=== PATIENT | male | born 1965 | race Caucasian/White ===

== ENCOUNTER 2017-06-09 17:30 | Inpatient (IN) | payer MEDICAID, OTHER ==
[2017-06-09 18:40] LABS: BASO % 0.5 % (0.0-2.0); EOS # 0.1 K/uL (0.0-0.7); EOS % 2.6 % (0.0-4.0); HEMATOCRIT 27.5 % (35.0-51.0); LYMPH # 2.8 K/uL (1.0-4.3); LYMPH % 53.7 % (20.0-40.0); MEAN CELL VOLUME 80.7 fL (80.0-94.0); MEAN CORPUSCULAR HEMOGLOBIN 26.1 pg (27.0-31.0); MEAN CORPUSCULAR HGB CONC 32.3 g/dL (33.0-37.0); MEAN PLATELET VOLUME 7.7 fL (7.2-11.7); MONO # 0.7 K/uL (0.0-0.8); MONO % 13.6 % (0.0-10.0); NRBC % 0.1 % (0.0-2.0); RED CELL DISTRIBUTION WIDTH 20.5 % (11.5-14.5); WHITE BLOOD COUNT 5.3 K/uL (4.8-10.8)
[2017-06-09 18:49] LABS: CHLORIDE 103 mmol/L (98-107)
[2017-06-09 18:50] LABS: POTASSIUM 3.9 mmol/L (3.6-5.2); SODIUM 140 mmol/L (132-148)
[2017-06-09 18:52] LABS: GFR AFRICAN-AMERICAN > 60
[2017-06-09 18:53] LABS: ALB/GLOB RATIO 0.8 (1.0-2.1); ALKALINE PHOSPHATASE 111 U/L (38-126); ALT/SGPT 92 U/L (21-72); AST/SGOT 152 U/L (17-59); BILIRUBIN,TOTAL 0.4 mg/dL (0.2-1.3); BLOOD UREA NITROGEN 13 mg/dL (9-20); CALCIUM 8.3 mg/dl (8.6-10.4); CARBON DIOXIDE 22 mmol/L (22-30); GLUCOSE,RANDOM 95 mg/dL (75-110); TOTAL PROTEIN 8.2 g/dL (6.3-8.3)
--- NOTE | 2017-06-09 18:57 | C.PDOC ---
History Of Present Illness 52 y/o male, with PMHx of seizures, and asthma, presents to ED for evaluation of seizure episode prior to arrival. As per brother, he noticed pt to be short of breath and was given breathing treatment. Pt then began to have seizure, at which point EMS was called. Pt states he is complaint with Keppra. Pt admits to drinking alcohol today. At evaluation, pt is having episode of seizure. Seizure activity was controlled. No other complaints at this time. Time Seen by Provider: 06/09/17 18:08 Chief Complaint (Nursing): Seizure History Per: Patient, Family History/Exam Limitations: no limitations Recent Seizure Activity Began: Just Before Arrival Severity: None Pain Scale Rating Of: 0 Recent travel outside of the [place]: No Additional History Per: Patient Past Medical History Reviewed: Historical Data, Nursing Documentation, Vital Signs Vital Signs: Last Vital Signs Temp 97.3 F L 06/09/17 17:35 Pulse 101 H 06/09/17 21:00 Resp 22 06/09/17 21:00 BP 107/62 06/09/17 21:00 Pulse Ox 95 06/09/17 21:32 - Medical History PMH: Depression, HTN, Seizures Family History: States: Unknown Family Hx - Social History Hx Tobacco Use: Yes Hx Alcohol Use: Yes Hx Substance Use: No - Immunization History Hx Tetanus Toxoid Vaccination: No Hx Influenza Vaccination: Yes Hx Pneumococcal Vaccination: Yes Review Of Systems Except As Marked, All Systems Reviewed And Found Negative. Constitutional: Negative for: Fever, Chills Cardiovascular: Negative for: Chest Pain, Palpitations Respiratory: Negative for: Cough, Shortness of Breath Gastrointestinal: Negative for: Nausea, Vomiting, Abdominal Pain, Diarrhea Neurological: Positive for: Seizures. Negative for: Weakness, Numbness, Headache, Dizziness Physical Exam - Physical Exam Appears: Non-toxic, No Acute Distress Skin: Normal Color, Warm, Dry Head: Atraumatic, Normacephalic Eye(s): bilateral: Normal Inspection, PERRL, EOMI Nose: Normal Oral Mucosa: Moist Neck: Normal ROM, Supple Chest: Symmetrical, No Tenderness Cardiovascular: Rhythm Regular, No Murmur Respiratory: Normal Breath Sounds, No Rales, No Rhonchi, No Wheezing Gastrointestinal/Abdominal: Soft, No Tenderness Extremity: Normal ROM, No Pedal Edema, Capillary Refill (<2 secs.), No Deformity Extremity: Bilateral: Atraumatic, Normal Color And Temperature Pulses: Left Radial: Normal, Right Radial: Normal Neurological/Psych: Oriented x3, Normal Speech, Normal Cognition ED Course And Treatment - Laboratory Results Result Diagrams: 06/09/17 18:34 06/09/17 18:34 ECG: Interpreted By Me, Viewed By Me ECG Rhythm: Sinus Tachycardia Interpretation Of ECG: Sinus Tachycardia with rate of 103bpm. Isolated T wave inversion in lead III. Rate From EC O2 Sat by Pulse Oximetry: 95 (RA) Pulse Ox Interpretation: Normal - CT Scan/US CT Head Other Rad Studies (CT/US): Interpreted By Me, Read By Radiologist, Radiology Report Reviewed CT/US Interpretation: IMPRESSION: 1. Nonspecific white matter changes. Acute infarction may be CT occult within first 24 hours. If a. focal deficit persists , consider followup CT or MRI for further evaluation. 2. Incidental/non-acute findings are described above. Medical Decision Making Medical Decision Making: Blood work, UA, CXR, EKG ordered and reviewed. On reevaluation, patient noted to have tremors and seizure like activity, 0.5 ativan given. Discussed with Hospitalist, Dr. Alberto, who will accept patient for admission to telemetry for seizure and ETOH abuse. Disposition - Disposition Prescriptions: Thiamine [Vitamin B1 Inj] 100 mg IJ ONCE #1 vial Forms: [employer] (Korean) - Scribe Statement The provider has reviewed the documentation as recorded by the Scribe Hernandez Leon All medical record entries made by the Scribe were at my direction and personally dictated by me. I have reviewed the chart and agree that the record accurately reflects my personal performance of the history, physical exam, medical decision making, and the department course for this patient. I have also personally directed, reviewed, and agree with the discharge instructions and disposition.
[2017-06-09 19:28] LABS: ALCOHOL SERUM 371 mg/dl (0-10)
[2017-06-09 19:50] LABS: RBC URINE 8 /hpf (0-3); URINE BACTERIA RARE (<OCC); URINE BILIRUBIN NEGATIVE (NEGATIVE); URINE BLOOD 2+ (NEGATIVE); URINE COLOR Yellow (YELLOW); URINE GLUCOSE (UA) NORMAL (Normal); URINE HYALINE CAST 0-2 /lpf (0-2); URINE KETONE NEGATIVE (NEGATIVE); URINE LEUKOCYTE ESTERASE NEG Leu/uL (Negative); URINE PROTEIN 1+ mg/dL (NEGATIVE); URINE UROBILINOGEN NORMAL mg/dL (0.2-1.0); WBC URINE 1 /hpf (0-5)
--- NOTE | 2017-06-09 21:17 | CT ---
EXAM: CT Head Without Intravenous Contrast CLINICAL HISTORY: 52 years old, male; Signs and symptoms; Other: Seizure TECHNIQUE: Axial computed tomography images of the head/brain without intravenous contrast. All CT scans at this facility use one or more dose reduction techniques, viz.: automated exposure control; ma/kV adjustment per patient size (including targeted exams where dose is matched to indication; i.e. head); or iterative reconstruction technique. Coronal and sagittal reformatted images were created and reviewed. COMPARISON: No relevant prior studies available. FINDINGS: Limitations: Motion artifact - mild. Brain: Mild atrophy. No definite intracranial hemorrhage. No mass. Few scattered foci of decreased attenuation within periventricular/subcortical white matter. No definite edema. Ventricles: No hydrocephalus. Bones/joints: No acute fracture. Soft tissues: Unremarkable. Vasculature: Minimal atherosclerotic disease of intracranial arteries. Sinuses: No acute sinusitis. Mastoid air cells: No mastoid effusion. Orbits: Unremarkable as visualized. IMPRESSION: 1. Nonspecific white matter changes. Acute infarction may be CT occult within first 24 hours. If a focal deficit persists, consider followup CT or MRI for further evaluation. 2. Incidental/non-acute findings are described above.
--- NOTE | 2017-06-10 02:10 | CP.PCM.HP ---
<MikhailisraelHannah SandhyaDev - Last Filed: 06/10/17 01:53> History of Present Illness - History of Present Illness History of Present Illness: CC: seizure HPI: 52 year old male with a past medical history of alcohol abuse, liver disease, hepatitis C, seizure, asthma, chronic O2 use, HTN, short term memory loss, depression, anxiety, carpal tunnel syndrome, frequent falls, and "borderline diabetes." He presents to the ED s/p seizure episode occurring at 3:30 PM at home today. History mostly provided by patient's brother (Nathan ) who witnessed the event. Around 3:30 PM today, shortly after having lunch, patient experienced chest pain, palpitations, SOB, and sweats that, as per brother, lead to convulsions and "eyes rolling back" lasting about 10-15 minutes. Denies trauma or recent illness. Patient disoriented and confused upon arrival at ED, but is able to converse at time of exam. He currently complains of mild midsternal chest pain as well as sharp pain in his feet and numbness in all extremities which are chronic as confirmed by his brother. Patient states he is compliant with his medication and has not had any recent medication changes. His last seizure was about 10 days ago. He is unable to recount how much alcohol he consumed today. PMD: Dr. Ernandez at [facility] [place] Neurologist: Dr. Bueno at [facility] Psychiatrist: Dr. Resendiz at [facility] PMHx: alcohol use disorder, liver disease, hepatitis C (from prior transfusion) , seizure, asthma, chronic O2 use, HTN, short term memory loss, depression, anxiety, carpal tunnel syndrome, frequent falls, and "borderline diabetes." SurgHx: L humerus fracture, appendectomy FamHx: father with DM, of SC at 64; brother had SC at age 52, another brother and niece with seizures; as per the brother, "chest pain runs in the family" SocialHx: lives alone, currently arranging for visiting nurse service through [facility]; 6/6 ADLs, 4/8 IADLs with dependence in food shopping, food preparation, housekeeping, and transportation; walks with cane. 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 Present on Admission - Present on Admission Any Indicators Present on Admission: No Review of Systems - Review of Systems Systems not reviewed;Unavailable: Altered Mental Status - Constitutional Constitutional: Excessive Sweating. absent: Fever, Headache - EENT Ears: absent: Dizziness - Cardiovascular Cardiovascular: Chest Pain, Dyspnea. absent: Leg Edema, Palpitations - Respiratory Respiratory: Dyspnea, Dyspnea on Exertion. absent: Cough - Gastrointestinal Gastrointestinal: absent: Abdominal Pain, Constipation, Diarrhea, Nausea, Vomiting - Musculoskeletal Musculoskeletal: Arthralgias (bilateral knees), Numbness (bilateral LE), Tingling - Neurological Neurological: Numbness (B/L LE), Frequent Falls. absent: Dizziness, Headaches Past Patient History - Infectious Disease Hx of Infectious Diseases: None - Past Social History Smoking Status: Light Smoker < 10 Cigarettes Daily - CARDIAC Hx Hypertension: Yes - NEUROLOGICAL Hx Seizures: Yes - PSYCHIATRIC Hx Depression: Yes Hx Substance Use: No - ANESTHESIA Hx Anesthesia: No Hx Anesthesia Reactions: Yes Meds Home Medications: Home Medication List Medication Instructions Recorded Confirmed Type Thiamine [Vitamin B1 Inj] 100 mg IJ ONCE #1 vial 06/09/17 Rx Allergies/Adverse Reactions: Allergies Allergy/AdvReac Type Severity Reaction Status Date / Time No Known Allergies Allergy Verified 06/09/17 17:50 Physical Exam - Constitutional Appears: No Acute Distress, Confused - Head Exam Head Exam: ATRAUMATIC, NORMAL INSPECTION - Eye Exam Eye Exam: EOMI, Normal appearance - ENT Exam ENT Exam: Mucous Membranes Moist - Respiratory Exam Respiratory Exam: Decreased Breath Sounds, Rales. absent: Clear to Auscultation Bilateral, Rhonchi, Wheezes, Respiratory Distress - Cardiovascular Exam Cardiovascular Exam: REGULAR RHYTHM, +S1, +S2, Systolic Murmur - GI/Abdominal Exam GI & Abdominal Exam: Firm (protuberant), Normal Bowel Sounds. absent: Tenderness - Extremities Exam Extremities exam: Positive for: normal inspection, pedal pulses present. Negative for: calf tenderness, pedal edema, tenderness - Neurological Exam Neurological exam: Alert - Psychiatric Exam Psychiatric exam: Flat Affect - Skin Skin Exam: Dry, Intact, Normal Color, Warm Results - Vital Signs Recent Vital Signs: Last Vital Signs Temp 97.3 F L 06/09/17 17:35 Pulse 91 H 06/10/17 01:14 Resp 18 06/10/17 01:14 BP 125/82 06/10/17 01:14 Pulse Ox 97 06/10/17 01:14 - Labs Result Diagrams: 06/09/17 18:34 06/09/17 18:34 Labs: Laboratory Results - last 24 hr 06/09/17 06/09/17 06/09/17 18:34 18:34 18:34 WBC 5.3 RBC 3.40 L Hgb 8.9 L D Hct 27.5 L MCV 80.7 D MCH 26.1 L MCHC 32.3 L RDW 20.5 H Plt Count 140 MPV 7.7 Neut % (Auto) 29.6 L Lymph % (Auto) 53.7 H [place] % (Auto) 13.6 H Eos % (Auto) 2.6 Baso % (Auto) 0.5 Neut # 1.6 L Lymph # 2.8 [place] # 0.7 Eos # 0.1 Baso # 0.0 Sodium 140 Potassium 3.9 Chloride 103 Carbon Dioxide 22 Anion Gap 19 BUN 13 Creatinine 0.7 L Est GFR ( Amer) > 60 Est GFR (Non-Af Amer) > 60 POC Glucose (mg/dL) Random Glucose 95 Calcium 8.3 L Total Bilirubin 0.4 AST 152 H ALT 92 H Alkaline Phosphatase 111 Troponin I < 0.0120 Total Protein 8.2 Albumin 3.7 Globulin 4.5 H Albumin/Globulin Ratio 0.8 L Urine Color Urine Clarity Urine pH Ur Specific [place] Urine Protein Urine Glucose (UA) Urine Ketones Urine Blood Urine Nitrate Urine Bilirubin Urine Urobilinogen Ur Leukocyte Esterase Urine WBC (Auto) Urine RBC (Auto) Urine Bacteria Hyaline Casts Phenytoin < 3.0 L Alcohol, Quantitative 371 H 06/09/17 06/09/17 19:11 19:31 WBC RBC Hgb Hct MCV MCH MCHC RDW Plt Count MPV Neut % (Auto) Lymph % (Auto) [place] % (Auto) Eos % (Auto) Baso % (Auto) Neut # Lymph # [place] # Eos # Baso # Sodium Potassium Chloride Carbon Dioxide Anion Gap BUN Creatinine Est GFR ( Amer) Est GFR (Non-Af Amer) POC Glucose (mg/dL) 75 Random Glucose Calcium Total Bilirubin AST ALT Alkaline Phosphatase Troponin I Total Protein Albumin Globulin Albumin/Globulin Ratio Urine Color Yellow Urine Clarity Clear Urine pH 5.0 Ur Specific [place] 1.017 Urine Protein 1+ H Urine Glucose (UA) Normal Urine Ketones Negative Urine Blood 2+ H Urine Nitrate Negative Urine Bilirubin Negative Urine Urobilinogen Normal Ur Leukocyte Esterase Neg Urine WBC (Auto) 1 Urine RBC (Auto) 8 H Urine Bacteria Rare Hyaline Casts 0-2 Phenytoin Alcohol, Quantitative Assessment & Plan (1) Seizure Assessment and Plan: Continue home medication- Levetiracetam Monitor for seizure activity Ativan taper (for alcohol withdrawal) Fall and seizure precautions Status: Acute (2) Alcohol intoxication Assessment and Plan: Alcohol toxicology: 371 Ativan taper CIWA protocol Fall precaution Aspiration precaution Started Folic acid, Multivitamins, and Thiamine Status: Acute (3) Chest pain Assessment and Plan: EKG: sinus tachycardia @103bpm CXR: f/u results Troponin x1: negative Troponin x2: f/u results Status: Acute (4) Prophylactic measure Assessment and Plan: SCDs ACHS Seizure, fall, and aspiration precautions O2 via nasal cannula as needed Heart Healthy diet Pepcid 20mg PO BID Status: Acute <Emerson Alberto - Last Filed: 06/10/17 06:14> Results - Vital Signs Recent Vital Signs: Last Vital Signs Temp 98.0 F 06/10/17 01:40 Pulse 98 H 06/10/17 01:40 Resp 20 06/10/17 01:40 BP 142/75 06/10/17 01:40 Pulse Ox 97 06/10/17 01:40 - Labs Result Diagrams: 06/10/17 03:06 06/10/17 03:06 Labs: Laboratory Results - last 24 hr 06/09/17 06/09/17 06/09/17 18:34 18:34 18:34 WBC 5.3 RBC 3.40 L Hgb 8.9 L D Hct 27.5 L MCV 80.7 D MCH 26.1 L MCHC 32.3 L RDW 20.5 H Plt Count 140 MPV 7.7 Neut % (Auto) 29.6 L Lymph % (Auto) 53.7 H [place] % (Auto) 13.6 H Eos % (Auto) 2.6 Baso % (Auto) 0.5 Neut # 1.6 L Lymph # 2.8 [place] # 0.7 Eos # 0.1 Baso # 0.0 Sodium 140 Potassium 3.9 Chloride 103 Carbon Dioxide 22 Anion Gap 19 BUN 13 Creatinine 0.7 L Est GFR ( Amer) > 60 Est GFR (Non-Af Amer) > 60 POC Glucose (mg/dL) Random Glucose 95 Calcium 8.3 L Total Bilirubin 0.4 AST 152 H ALT 92 H Alkaline Phosphatase 111 Troponin I < 0.0120 Total Protein 8.2 Albumin 3.7 Globulin 4.5 H Albumin/Globulin Ratio 0.8 L Urine Color Urine Clarity Urine pH Ur Specific [place] Urine Protein Urine Glucose (UA) Urine Ketones Urine Blood Urine Nitrate Urine Bilirubin Urine Urobilinogen Ur Leukocyte Esterase Urine WBC (Auto) Urine RBC (Auto) Urine Bacteria Hyaline Casts Phenytoin < 3.0 L Alcohol, Quantitative 371 H 06/09/17 06/09/17 06/10/17 19:11 19:31 03:06 WBC RBC Hgb Hct MCV MCH MCHC RDW Plt Count MPV Neut % (Auto) Lymph % (Auto) [place] % (Auto) Eos % (Auto) Baso % (Auto) Neut # Lymph # [place] # Eos # Baso # Sodium 139 Potassium 3.7 Chloride 101 Carbon Dioxide 24 Anion Gap 17 BUN 10 Creatinine 0.6 L Est GFR ( Amer) > 60 Est GFR (Non-Af Amer) > 60 POC Glucose (mg/dL) 75 Random Glucose 124 H Calcium 8.5 L Total Bilirubin 0.3 AST 144 H ALT 101 H Alkaline Phosphatase 94 Troponin I < 0.0120 Total Protein 8.5 H Albumin 3.5 Globulin 5.0 H Albumin/Globulin Ratio 0.7 L Urine Color Yellow Urine Clarity Clear Urine pH 5.0 Ur Specific [place] 1.017 Urine Protein 1+ H Urine Glucose (UA) Normal Urine Ketones Negative Urine Blood 2+ H Urine Nitrate Negative Urine Bilirubin Negative Urine Urobilinogen Normal Ur Leukocyte Esterase Neg Urine WBC (Auto) 1 Urine RBC (Auto) 8 H Urine Bacteria Rare Hyaline Casts 0-2 Phenytoin Alcohol, Quantitative 06/10/17 03:06 WBC 2.8 L RBC 3.31 L Hgb 8.6 L Hct 26.7 L MCV 80.7 MCH 26.1 L MCHC 32.3 L RDW 20.4 H Plt Count 109 L D MPV 7.9 Neut % (Auto) 35.5 L Lymph % (Auto) 42.6 H [place] % (Auto) 18.4 H Eos % (Auto) 2.6 Baso % (Auto) 0.9 Neut # 1.0 L Lymph # 1.2 [place] # 0.5 Eos # 0.1 Baso # 0.0 Sodium Potassium Chloride Carbon Dioxide Anion Gap BUN Creatinine Est GFR ( Amer) Est GFR (Non-Af Amer) POC Glucose (mg/dL) Random Glucose Calcium Total Bilirubin AST ALT Alkaline Phosphatase Troponin I Total Protein Albumin Globulin Albumin/Globulin Ratio Urine Color Urine Clarity Urine pH Ur Specific [place] Urine Protein Urine Glucose (UA) Urine Ketones Urine Blood Urine Nitrate Urine Bilirubin Urine Urobilinogen Ur Leukocyte Esterase Urine WBC (Auto) Urine RBC (Auto) Urine Bacteria Hyaline Casts Phenytoin Alcohol, Quantitative Assessment & Plan - Date & Time Date: 06/10/17 (I have seen and examined the patient. I agree with the findings and plan of care as documented by Dr. Basilio. Patient with seizures. History of seizure disorder for which patient takes Keppra. Neuro consult. Also with alcohol abuse. May be contributing to seizure disorder. CIWA protocol. Ativan given in ED. Also complaining of chest pain. ROMIx3 with EKG. Monitor for acute changes.) Time: 06:11 Attending/Attestation - Attestation I have personally seen and examined this patient.: Yes I have fully participated in the care of the patient.: Yes I have reviewed all pertinent clinical information: Yes
[2017-06-10 02:15] VITALS: RESP 20
[2017-06-10 03:11] LABS: BASO % 0.9 % (0.0-2.0); EOS # 0.1 K/uL (0.0-0.7); EOS % 2.6 % (0.0-4.0); HEMATOCRIT 26.7 % (35.0-51.0); LYMPH # 1.2 K/uL (1.0-4.3); LYMPH % 42.6 % (20.0-40.0); MEAN CELL VOLUME 80.7 fL (80.0-94.0); MEAN CORPUSCULAR HEMOGLOBIN 26.1 pg (27.0-31.0); MEAN CORPUSCULAR HGB CONC 32.3 g/dL (33.0-37.0); MEAN PLATELET VOLUME 7.9 fL (7.2-11.7); MONO # 0.5 K/uL (0.0-0.8); MONO % 18.4 % (0.0-10.0); NRBC % 0.1 % (0.0-2.0); RED CELL DISTRIBUTION WIDTH 20.4 % (11.5-14.5); WHITE BLOOD COUNT 2.8 K/uL (4.8-10.8)
[2017-06-10 03:17] LABS: CHLORIDE 101 mmol/L (98-107); POTASSIUM 3.7 mmol/L (3.6-5.2); SODIUM 139 mmol/L (132-148)
[2017-06-10 03:19] LABS: AST/SGOT 144 U/L (17-59); BILIRUBIN,TOTAL 0.3 mg/dL (0.2-1.3); CARBON DIOXIDE 24 mmol/L (22-30); GFR AFRICAN-AMERICAN > 60
[2017-06-10 03:20] LABS: ALB/GLOB RATIO 0.7 (1.0-2.1); ALKALINE PHOSPHATASE 94 U/L (38-126); ALT/SGPT 101 U/L (21-72); BLOOD UREA NITROGEN 10 mg/dL (9-20); CALCIUM 8.5 mg/dl (8.6-10.4); GLUCOSE,RANDOM 124 mg/dL (75-110); TOTAL PROTEIN 8.5 g/dL (6.3-8.3)
[2017-06-10] MEDS: Multiple Vitamins Tab PO SCH (09:38)
--- NOTE | 2017-06-10 10:13 | RAD ---
HISTORY: chest pain COMPARISON: None available. TECHNIQUE: Chest, one view. FINDINGS: Examination limited by habitus and hypoinflation. LUNGS: Mild pulmonary venous congestion versus vascular crowding due to hypoinflation. No focal consolidation. Please note that chest x-ray has limited sensitivity for the detection of pulmonary masses. PLEURA: No significant pleural effusion identified. No definite pneumothorax . CARDIOVASCULAR: Borderline cardiomegaly. OSSEOUS STRUCTURES: Postsurgical changes of the left humerus. VISUALIZED UPPER ABDOMEN: Unremarkable. OTHER FINDINGS: None. IMPRESSION: Pulmonary venous congestion versus vascular crowding due to hypoinflation. Borderline cardiomegaly.
--- NOTE | 2017-06-10 15:24 | CARD ---
APPROVED REPORT EKG Measurement Heart [id number] <Conclusion> Sinus tachycardia Minimal voltage criteria for LVH, may be normal variant Borderline ECG
--- NOTE | 2017-06-10 19:38 | CP.PCM.PN ---
<Naeem Hartley - Last Filed: 06/10/17 19:23> Subjective - Date & Time of Evaluation Date of Evaluation: 06/10/17 Time of Evaluation: 09:00 - Subjective Subjective: PGY1 medicine note for Dr. Dang Patient seen and examined at bedside this morning. Patient seen sleeping and snoring comfortably in his bed. Once awoken, patient states that he has a headache. This headache is like similar headaches he has had in the past. He denies any vision changes, photophobia, nausea, vomiting, numbness or tingling. Patient reports that he does not normally drink every day and can go for weeks in between drinking. Patient states that he takes his seizure medication, Keppra 750mg BID, regularly. Patient reports some abdominal pain that comes and goes. He states that he has had a kidney for over 3 months and that is causing his pain. He has recently been worked up for the pain and has a urologist with the [facility] that he follows up with. He reports 3 seizures since March 25, 2017. Denies f/c, n/v, sob or cp. Objective - Vital Signs/Intake and Output Vital Signs (last 24 hours): Temp Pulse Resp BP Pulse Ox 99.7 F H 113 H 20 126/84 95 06/10/17 15:41 06/10/17 15:41 06/10/17 15:41 06/10/17 15:41 06/10/17 15:41 Intake and Output: 06/10/17 06/11/17 18:59 06:59 Intake Total 400 Balance 400 - Medications Medications: Current Medications Famotidine (Pepcid) 20 mg PO BID [facility] Last Admin: 06/10/17 17:45 Dose: 20 mg Folic Acid (Folic Acid) 1 mg PO DAILY [facility] Last Admin: 06/10/17 09:38 Dose: 1 mg Levetiracetam (Keppra) 750 mg PO BID [facility] Last Admin: 06/10/17 17:49 Dose: 750 mg Lorazepam (Ativan) 2 mg PO Q4 [facility] PRN Reason: Taper Stop: 06/15/17 01:44 Last Admin: 06/10/17 16:56 Dose: 2 mg Multivitamins (Hexavitamin) 1 tab PO DAILY [facility] Last Admin: 06/10/17 09:38 Dose: 1 tab Pneumococcal Polyvalent Vaccine (Pneumovax 23 Vaccine) 0.5 ml IM .ONCE ONE Stop: 06/12/17 14:01 Thiamine HCl (Vitamin B1 Tab) 100 mg PO DAILY [facility] Last Admin: 06/10/17 09:38 Dose: 100 mg - Labs Labs: 06/10/17 03:06 06/10/17 03:06 - Constitutional Appears: Non-toxic, No Acute Distress - Head Exam Head Exam: ATRAUMATIC, NORMOCEPHALIC - Eye Exam Eye Exam: EOMI, PERRL - ENT Exam ENT Exam: Mucous Membranes Moist - Respiratory Exam Respiratory Exam: Clear to Ausculation Bilateral, NORMAL BREATHING PATTERN. absent: Accessory Muscle Use, Respiratory Distress - Cardiovascular Exam Cardiovascular Exam: REGULAR RHYTHM, +S1, +S2 - GI/Abdominal Exam GI & Abdominal Exam: Soft, Normal Bowel Sounds. absent: Distended, Firm, Guarding, Rigid, Tenderness - Extremities Exam Extremities Exam: absent: Calf Tenderness, Pedal Edema - Neurological Exam Neurological Exam: Alert, Awake, Oriented x3 - Psychiatric Exam Psychiatric exam: Normal Affect, Normal Mood - Skin Skin Exam: Dry, Normal Color, Warm Assessment and Plan - Assessment and Plan (Free Text) Assessment: Seizure Continue home medication- Levetiracetam 750mg PO BID Monitor for seizure activity Ativan taper (for alcohol withdrawal) Fall and seizure precautions Patient's neurologist is Dr. Leos in [place] at the [facility] Alcohol intoxication Alcohol toxicology: 371 Ativan taper [place] protocol Fall precaution Aspiration precaution Started Folic acid, Multivitamins, and Thiamine Anemia Hgb 8.6 today Hgb 8.9 upon admission Will continue to monitor f/u iron studies, vit B12, folate Chest pain EKG: sinus tachycardia @103bpm CXR: f/u results Troponin x3 negative Prophylactic measure SCDs ACHS Seizure, fall, and aspiration precautions O2 via nasal cannula as needed Heart Healthy diet Pepcid 20mg PO BID Patient given 2mg of morphine for headache. Case discussed with Dr. Alton Hartley PGY1 <Maggi Dang - Last Filed: 06/10/17 23:03> Objective - Vital Signs/Intake and Output Vital Signs (last 24 hours): Temp Pulse Resp BP Pulse Ox 99.7 F H 113 H 20 126/84 95 06/10/17 15:41 06/10/17 15:41 06/10/17 15:41 06/10/17 15:41 06/10/17 15:41 Intake and Output: 06/10/17 06/11/17 18:59 06:59 Intake Total 400 Output Total 1800 Balance 400 -1800 - Medications Medications: Current Medications Famotidine (Pepcid) 20 mg PO BID [facility] Last Admin: 06/10/17 17:45 Dose: 20 mg Folic Acid (Folic Acid) 1 mg PO DAILY [facility] Last Admin: 06/10/17 09:38 Dose: 1 mg Levetiracetam (Keppra) 750 mg PO BID [facility] Last Admin: 06/10/17 17:49 Dose: 750 mg Lorazepam (Ativan) 2 mg PO Q4 [facility] PRN Reason: Taper Stop: 06/15/17 01:44 Last Admin: 06/10/17 21:00 Dose: 2 mg Multivitamins (Hexavitamin) 1 tab PO DAILY [facility] Last Admin: 06/10/17 09:38 Dose: 1 tab Pneumococcal Polyvalent Vaccine (Pneumovax 23 Vaccine) 0.5 ml IM .ONCE ONE Stop: 06/12/17 14:01 Thiamine HCl (Vitamin B1 Tab) 100 mg PO DAILY [facility] Last Admin: 06/10/17 09:38 Dose: 100 mg - Labs Labs: 06/10/17 03:06 06/10/17 03:06 Attending/Attestation - Attestation I have personally seen and examined this patient.: Yes I have fully participated in the care of the patient.: Yes I have reviewed all pertinent clinical information, including history, physical exam and plan: Yes Notes (Text): 06/10/17 23:00 Patient was seen and examined this afternoon with the resident.Plan discussed
--- NOTE | 2017-06-11 07:28 | CP.PCM.CON ---
History of Present Illness - History of Present Illness History of Present Illness: CONSULT DICTATED ETOH RELATED SEIZURES TOXIC NEUROPATHY ABSTINENCE FROM ETOH CONT KEPPRA MVT AND B1 NO FURTHER WORK UP IS NEEDED FOLLOW UP WITH HIS NEUROLOGIST NO DRIVING Past Patient History - Infectious Disease Hx of Infectious Diseases: None - Past Social History Smoking Status: Light Smoker < 10 Cigarettes Daily - CARDIAC Hx Hypertension: Yes - PULMONARY Hx Respiratory Disorders: Yes Hx Asthma: Yes - NEUROLOGICAL Hx Seizures: Yes - ENDOCRINE/METABOLIC Hx Endocrine Disorders: Yes Hx Diabetes Mellitus Type 2: Yes - HEMATOLOGICAL/ONCOLOGICAL Hx Blood Disorders: Yes Hx Hepatitis C: Yes - INTEGUMENTARY Hx Dermatological Problems: No - MUSCULOSKELETAL/RHEUMATOLOGICAL Hx Musculoskeletal Disorders: Yes Hx Falls: Yes Other/Comment: carpal tunnel hands feet - GASTROINTESTINAL Hx Gastrointestinal Disorders: No - GENITOURINARY/GYNECOLOGICAL Hx Genitourinary Disorders: No - PSYCHIATRIC Hx Depression: Yes Hx Substance Use: No - SURGICAL HISTORY Hx Surgeries: Yes Hx Appendectomy: Yes Other/Comment: left arm fracture he metal plates - ANESTHESIA Hx Anesthesia: No Hx Anesthesia Reactions: Yes Meds Home Medications: Home Medication List Medication Instructions Recorded Confirmed Type Thiamine [Vitamin B1 Inj] 100 mg IJ ONCE #1 vial 06/09/17 Rx Allergies/Adverse Reactions: Allergies Allergy/AdvReac Type Severity Reaction Status Date / Time No Known Allergies Allergy Verified 06/09/17 17:50 - Medications Medications: Current Medications Famotidine (Pepcid) 20 mg PO BID [facility] Last Admin: 06/10/17 17:45 Dose: 20 mg Folic Acid (Folic Acid) 1 mg PO DAILY [facility] Last Admin: 06/10/17 09:38 Dose: 1 mg Levetiracetam (Keppra) 750 mg PO BID [facility] Last Admin: 06/10/17 17:49 Dose: 750 mg Lorazepam (Ativan) 2 mg PO Q4 [facility] PRN Reason: Taper Stop: 06/15/17 01:44 Last Admin: 06/11/17 05:04 Dose: 2 mg Multivitamins (Hexavitamin) 1 tab PO DAILY [facility] Last Admin: 06/10/17 09:38 Dose: 1 tab Pneumococcal Polyvalent Vaccine (Pneumovax 23 Vaccine) 0.5 ml IM .ONCE ONE Stop: 06/12/17 14:01 Thiamine HCl (Vitamin B1 Tab) 100 mg PO DAILY [facility] Last Admin: 06/10/17 09:38 Dose: 100 mg Results - Vital Signs Recent Vital Signs: Last Vital Signs Temp 99 F 06/11/17 04:05 Pulse 115 H 06/11/17 04:05 Resp 20 06/11/17 04:05 BP 135/96 H 06/11/17 04:05 Pulse Ox 100 06/11/17 04:05 - Labs Result Diagrams: 06/10/17 03:06 06/10/17 03:06 Labs: Laboratory Results - last 24 hr 06/10/17 06/10/17 06/10/17 03:06 11:11 11:42 POC Glucose (mg/dL) 83 Hemoglobin A1c 6.2 Troponin I < 0.0120 06/10/17 06/10/17 06/11/17 16:58 21:27 05:57 POC Glucose (mg/dL) 84 98 102 Hemoglobin A1c Troponin I
[2017-06-11 07:51] LABS: BASO % 0.7 % (0.0-2.0); EOS # 0.1 K/uL (0.0-0.7); EOS % 2.6 % (0.0-4.0); HEMATOCRIT 32.9 % (35.0-51.0); LYMPH # 1.4 K/uL (1.0-4.3); LYMPH % 40.3 % (20.0-40.0); MEAN CELL VOLUME 79.4 fL (80.0-94.0); MEAN CORPUSCULAR HEMOGLOBIN 26.4 pg (27.0-31.0); MEAN CORPUSCULAR HGB CONC 33.2 g/dL (33.0-37.0); MEAN PLATELET VOLUME 9.2 fL (7.2-11.7); MONO # 0.5 K/uL (0.0-0.8); MONO % 13.9 % (0.0-10.0); NRBC % 0.1 % (0.0-2.0); RED CELL DISTRIBUTION WIDTH 19.8 % (11.5-14.5); WHITE BLOOD COUNT 3.4 K/uL (4.8-10.8)
[2017-06-11 08:06] VITALS: BP 108/70; PULSE 115; TEMP 98.5; O2SAT 97
[2017-06-11 08:44] LABS: IRON 52 ug/dL (49-181)
[2017-06-11 08:52] LABS: CHLORIDE 95 mmol/L (98-107); SODIUM 134 mmol/L (132-148)
[2017-06-11 08:53] LABS: POTASSIUM 3.9 mmol/L (3.6-5.2)
[2017-06-11 08:55] LABS: ALB/GLOB RATIO 0.8 (1.0-2.1); ALKALINE PHOSPHATASE 107 U/L (38-126); ALT/SGPT 86 U/L (21-72); AST/SGOT 144 U/L (17-59); BILIRUBIN,TOTAL 0.6 mg/dL (0.2-1.3); BLOOD UREA NITROGEN 9 mg/dL (9-20); CALCIUM 9.2 mg/dl (8.6-10.4); CARBON DIOXIDE 29 mmol/L (22-30); GFR AFRICAN-AMERICAN > 60; GLUCOSE,RANDOM 103 mg/dL (75-110); TOTAL PROTEIN 9.1 g/dL (6.3-8.3)
[2017-06-11 09:21] LABS: FOLATE 14.9 ng/mL
[2017-06-11] MEDS: Multiple Vitamins Tab PO SCH (10:05)
--- NOTE | 2017-06-11 14:05 | CP.PCM.DIS ---
<Naeem Hartley - Last Filed: 06/11/17 18:12> Provider - Provider Date of Admission: 06/09/17 23:48 Attending physician: Emerson Alberto MD Consults: Neurology, Dr. Barrera Time Spent in preparation of Discharge (in minutes): 20 Hospital Course - Lab Results Lab Results: Most Recent Lab Values WBC 3.4 K/uL (4.8-10.8) L 06/11/17 07:33 RBC 4.15 Mil/uL (4.40-5.90) L 06/11/17 07:33 Hgb 10.9 g/dL (12.0-18.0) L D 06/11/17 07:33 Hct 32.9 % (35.0-51.0) L 06/11/17 07:33 MCV 79.4 fL (80.0-94.0) L 06/11/17 07:33 MCH 26.4 pg (27.0-31.0) L 06/11/17 07:33 MCHC 33.2 g/dL (33.0-37.0) 06/11/17 07:33 RDW 19.8 % (11.5-14.5) H 06/11/17 07:33 Plt Count 101 K/uL (130-400) L 06/11/17 07:33 MPV 9.2 fL (7.2-11.7) 06/11/17 07:33 Neut % (Auto) 42.5 % (50.0-75.0) L 06/11/17 07:33 Lymph % (Auto) 40.3 % (20.0-40.0) H 06/11/17 07:33 [place] % (Auto) 13.9 % (0.0-10.0) H 06/11/17 07:33 Eos % (Auto) 2.6 % (0.0-4.0) 06/11/17 07:33 Baso % (Auto) 0.7 % (0.0-2.0) 06/11/17 07:33 Neut # 1.4 K/uL (1.8-7.0) L 06/11/17 07:33 Lymph # 1.4 K/uL (1.0-4.3) 06/11/17 07:33 [place] # 0.5 K/uL (0.0-0.8) 06/11/17 07:33 Eos # 0.1 K/uL (0.0-0.7) 06/11/17 07:33 Baso # 0.0 K/uL (0.0-0.2) 06/11/17 07:33 Differential Comment 06/11/17 07:33 Sodium 134 mmol/L (132-148) 06/11/17 07:33 Potassium 3.9 mmol/L (3.6-5.2) 06/11/17 07:33 Chloride 95 mmol/L (98-107) L 06/11/17 07:33 Carbon Dioxide 29 mmol/L (22-30) 06/11/17 07:33 Anion Gap 15 (10-20) 06/11/17 07:33 BUN 9 mg/dL (9-20) 06/11/17 07:33 Creatinine 0.7 mg/dL (0.8-1.5) L 06/11/17 07:33 Est GFR ( Amer) > 60 06/11/17 07:33 Est GFR (Non-Af Amer) > 60 06/11/17 07:33 POC Glucose (mg/dL) 131 mg/dL (65-110) H 06/11/17 11:35 Random Glucose 103 mg/dL (75-110) 06/11/17 07:33 Hemoglobin A1c 6.2 % (4.2-6.5) 06/10/17 03:06 Calcium 9.2 mg/dl (8.6-10.4) 06/11/17 07:33 Iron 52 ug/dL (49-181) 06/11/17 07:33 TIBC 532 ug/dL (250-450) H 06/11/17 07:33 % Saturation 10 (20-55) L 06/11/17 07:33 Total Bilirubin 0.6 mg/dL (0.2-1.3) 06/11/17 07:33 AST 144 U/L (17-59) H 06/11/17 07:33 ALT 86 U/L (21-72) H 06/11/17 07:33 Alkaline Phosphatase 107 U/L (38-126) 06/11/17 07:33 Troponin I < 0.0120 ng/mL (0.00-0.120) 06/10/17 11:11 Total Protein 9.1 g/dL (6.3-8.3) H 06/11/17 07:33 Albumin 4.0 g/dL (3.5-5.0) 06/11/17 07:33 Globulin 5.2 gm/dL (2.2-3.9) H 06/11/17 07:33 Albumin/Globulin Ratio 0.8 (1.0-2.1) L 06/11/17 07:33 Vitamin B12 525 pg/mL (239-931) 06/11/17 07:33 Folate 14.9 ng/mL 06/11/17 07:33 Urine Color Yellow (YELLOW) 06/09/17 19:31 Urine Clarity Clear (Clear) 06/09/17 19:31 Urine pH 5.0 (5.0-8.0) 06/09/17 19:31 Ur Specific [place] 1.017 (1.003-1.030) 06/09/17 19:31 Urine Protein 1+ mg/dL (NEGATIVE) H 06/09/17 19:31 Urine Glucose (UA) Normal mg/dL (Normal) 06/09/17 19:31 Urine Ketones Negative mg/dL (NEGATIVE) 06/09/17 19:31 Urine Blood 2+ (NEGATIVE) H 06/09/17 19:31 Urine Nitrate Negative (NEGATIVE) 06/09/17 19:31 Urine Bilirubin Negative (NEGATIVE) 06/09/17 19:31 Urine Urobilinogen Normal mg/dL (0.2-1.0) 06/09/17 19:31 Ur Leukocyte Esterase Neg [place]/uL (Negative) 06/09/17 19:31 Urine WBC (Auto) 1 /hpf (0-5) 06/09/17 19:31 Urine RBC (Auto) 8 /hpf (0-3) H 06/09/17 19:31 Urine Bacteria Rare (<OCC) 06/09/17 19:31 Hyaline Casts 0-2 /lpf (0-2) 06/09/17 19:31 Phenytoin < 3.0 ug/mL (10-20) L 06/09/17 18:34 Alcohol, Quantitative 371 mg/dl (0-10) H 06/09/17 18:34 - Hospital Course Hospital Course: As per admission documentation, 52 year old male with a past medical history of alcohol abuse, liver disease, hepatitis C, seizure, asthma, chronic O2 use, HTN, short term memory loss, depression, anxiety, carpal tunnel syndrome, frequent falls, and "borderline diabetes." He presents to the ED s/p seizure episode occurring at 3 :30 PM at home today. History mostly provided by patient's brother (Nathan) who witnessed the event. Around 3:30 PM today, shortly after having lunch, patient experienced chest pain, palpitations, SOB, and sweats that, as per brother, lead to convulsions and "eyes rolling back" lasting about 10-15 minutes. Denies trauma or recent illness. Patient disoriented and confused upon arrival at ED, but is able to converse at time of exam. He currently complains of mild midsternal chest pain as well as sharp pain in his feet and numbness in all extremities which are chronic as confirmed by his brother. Patient states he is compliant with his medication and has not had any recent medication changes. His last seizure was about 10 days ago. He is unable to recount how much alcohol he consumed today. Hospital course Patient admitted for seizure, alcohol intoxication and observation. Neuro consulted, Dr. Barrera. Head CT 06/09/17 - Nonspecific white matter changes. Acute infarction may be CT occult within first 24 hours. If a focal deficit persists, consider followup CT or MRI for further evaluation. Patient was altered upon arrival and complained of extremity pains. The extremity pain was found to be chronic, per the patient's brother. The patient admitted this to be true once he was sober. The patient's cognitive function returned and stated that he has a neurologist at the [facility] in [place], [place] that he follows up with regularly. Patient reports a recent increase in his Keppra. Patient was stable throughout his stay and did not experience any more seizures. Patient was discharge and instructed to continue his medications as directed by his neurologist. He was counseled about alcohol and the dangers associated with excessive alcohol abuse. Discharge Instructions, Patient is to be discharged home per Dr. Dang. Patient is to follow up with his primary care physician within one week. Patient is to follow up with his neurologist, Dr. Leos, in [place], [place] at the [facility] within one week of being discharged. Patient instructed to continue to take his home medications as directed by his prescribing physician. Patient instructed about the hazards of drinking alcohol and need for avoidance at this time. If patient experiences new or worsening symptoms, please return to the hospital. - Date & Time of H&P Date of H&P: 06/09/17 Time of H&P: 01:50 Discharge Exam - Head Exam Head Exam: ATRAUMATIC, NORMOCEPHALIC - Eye Exam Eye Exam: EOMI, Normal appearance. absent: Scleral icterus - ENT Exam ENT Exam: Mucous Membranes Moist - Neck Exam Neck exam: Full Rom - Respiratory Exam Respiratory Exam: Clear to PA & Lateral, NORMAL BREATHING PATTERN, UNREMARKABLE. absent: Accessory Muscle Use, Respiratory Distress - Cardiovascular Exam Cardiovascular Exam: REGULAR RHYTHM, +S1, +S2 - GI/Abdominal Exam GI & Abdominal Exam: Normal Bowel Sounds, Soft. absent: Distended, Firm, Guarding, Tenderness - Extremities Exam Extremities exam: normal capillary refill Additional comments: Patient complains of chronic pain all four extremities. This pain is not anything new or different. - Neurological Exam Neurological exam: Alert, CN II-XII Intact, Oriented x3 - Psychiatric Exam Psychiatric exam: Normal Affect, Normal Mood - Skin Skin Exam: Dry, Normal Color, Warm Discharge Plan - Discharge Medications Prescriptions: Thiamine [Vitamin B1 Tab] 100 mg PO DAILY #30 tab - Follow Up Plan Condition: GOOD Disposition: HOME/ ROUTINE Instructions: Thiamine (By injection), Heart Healthy Diet (DC), Alcohol Intoxication (DC), Abuse of Alcohol (DC), Recurrent Seizures in Adults (DC) Additional Instructions: Patient is to be discharged home per Dr. Dang. Patient is to follow up with his primary care physician within one week. Patient is to follow up with his neurologist, Dr. Leos, in [place], [place] at the [facility] within one week of being discharged. Patient instructed to continue to take his home medications as directed by his prescribing physician. Patient instructed about the hazards of drinking alcohol and need for avoidance at this time. If patient experiences new or worsening symptoms, please return to the hospital. <Maggi Dang - Last Filed: 06/12/17 15:03> Provider - Provider Date of Admission: 06/09/17 23:48 Attending physician: Emerson Alberto MD Hospital Course - Lab Results Lab Results: Most Recent Lab Values WBC 3.4 K/uL (4.8-10.8) L 06/11/17 07:33 RBC 4.15 Mil/uL (4.40-5.90) L 06/11/17 07:33 Hgb 10.9 g/dL (12.0-18.0) L D 06/11/17 07:33 Hct 32.9 % (35.0-51.0) L 06/11/17 07:33 MCV 79.4 fL (80.0-94.0) L 06/11/17 07:33 MCH 26.4 pg (27.0-31.0) L 06/11/17 07:33 MCHC 33.2 g/dL (33.0-37.0) 06/11/17 07:33 RDW 19.8 % (11.5-14.5) H 06/11/17 07:33 Plt Count 101 K/uL (130-400) L 06/11/17 07:33 MPV 9.2 fL (7.2-11.7) 06/11/17 07:33 Neut % (Auto) 42.5 % (50.0-75.0) L 06/11/17 07:33 Lymph % (Auto) 40.3 % (20.0-40.0) H 06/11/17 07:33 [place] % (Auto) 13.9 % (0.0-10.0) H 06/11/17 07:33 Eos % (Auto) 2.6 % (0.0-4.0) 06/11/17 07:33 Baso % (Auto) 0.7 % (0.0-2.0) 06/11/17 07:33 Neut # 1.4 K/uL (1.8-7.0) L 06/11/17 07:33 Lymph # 1.4 K/uL (1.0-4.3) 06/11/17 07:33 [place] # 0.5 K/uL (0.0-0.8) 06/11/17 07:33 Eos # 0.1 K/uL (0.0-0.7) 06/11/17 07:33 Baso # 0.0 K/uL (0.0-0.2) 06/11/17 07:33 Differential Comment 06/11/17 07:33 Sodium 134 mmol/L (132-148) 06/11/17 07:33 Potassium 3.9 mmol/L (3.6-5.2) 06/11/17 07:33 Chloride 95 mmol/L (98-107) L 06/11/17 07:33 Carbon Dioxide 29 mmol/L (22-30) 06/11/17 07:33 Anion Gap 15 (10-20) 06/11/17 07:33 BUN 9 mg/dL (9-20) 06/11/17 07:33 Creatinine 0.7 mg/dL (0.8-1.5) L 06/11/17 07:33 Est GFR ( Amer) > 60 06/11/17 07:33 Est GFR (Non-Af Amer) > 60 06/11/17 07:33 POC Glucose (mg/dL) 131 mg/dL (65-110) H 06/11/17 11:35 Random Glucose 103 mg/dL (75-110) 06/11/17 07:33 Hemoglobin A1c 6.2 % (4.2-6.5) 06/10/17 03:06 Calcium 9.2 mg/dl (8.6-10.4) 06/11/17 07:33 Iron 52 ug/dL (49-181) 06/11/17 07:33 TIBC 532 ug/dL (250-450) H 06/11/17 07:33 % Saturation 10 (20-55) L 06/11/17 07:33 Total Bilirubin 0.6 mg/dL (0.2-1.3) 06/11/17 07:33 AST 144 U/L (17-59) H 06/11/17 07:33 ALT 86 U/L (21-72) H 06/11/17 07:33 Alkaline Phosphatase 107 U/L (38-126) 06/11/17 07:33 Troponin I < 0.0120 ng/mL (0.00-0.120) 06/10/17 11:11 Total Protein 9.1 g/dL (6.3-8.3) H 06/11/17 07:33 Albumin 4.0 g/dL (3.5-5.0) 06/11/17 07:33 Globulin 5.2 gm/dL (2.2-3.9) H 06/11/17 07:33 Albumin/Globulin Ratio 0.8 (1.0-2.1) L 06/11/17 07:33 Vitamin B12 525 pg/mL (239-931) 06/11/17 07:33 Folate 14.9 ng/mL 06/11/17 07:33 Urine Color Yellow (YELLOW) 06/09/17 19:31 Urine Clarity Clear (Clear) 06/09/17 19:31 Urine pH 5.0 (5.0-8.0) 06/09/17 19:31 Ur Specific [place] 1.017 (1.003-1.030) 06/09/17 19:31 Urine Protein 1+ mg/dL (NEGATIVE) H 06/09/17 19:31 Urine Glucose (UA) Normal mg/dL (Normal) 06/09/17 19:31 Urine Ketones Negative mg/dL (NEGATIVE) 06/09/17 19:31 Urine Blood 2+ (NEGATIVE) H 06/09/17 19:31 Urine Nitrate Negative (NEGATIVE) 06/09/17 19:31 Urine Bilirubin Negative (NEGATIVE) 06/09/17 19:31 Urine Urobilinogen Normal mg/dL (0.2-1.0) 06/09/17 19:31 Ur Leukocyte Esterase Neg [place]/uL (Negative) 06/09/17 19:31 Urine WBC (Auto) 1 /hpf (0-5) 06/09/17 19:31 Urine RBC (Auto) 8 /hpf (0-3) H 06/09/17 19:31 Urine Bacteria Rare (<OCC) 06/09/17 19:31 Hyaline Casts 0-2 /lpf (0-2) 06/09/17 19:31 Phenytoin < 3.0 ug/mL (10-20) L 06/09/17 18:34 Alcohol, Quantitative 371 mg/dl (0-10) H 06/09/17 18:34
--- NOTE | 2017-06-12 09:11 | EEG ---
This is a 16-channel electroencephalogram of awake and drowsy adult. During this the patient showed 9 to 11 Hz alpha activities at parietal and occipital leads. This alpha activity is symmetrically attenuated with eye opening. The photic stimulation did not evoke driving response noted after 2 to 25 Hz. IMPRESSION: This is a normal electroencephalogram of an awake and drowsy adult. During the study, neither electroencephalographic, paroxysmal activities nor focal slowing noted. Chiki Barrera MD
--- NOTE | 2017-06-12 09:11 | PN ---
DATE: 06/11/2017 REASON FOR EVALUATION: Seizures. CHIEF COMPLAINT: The patient was brought into [facility] following two to three seizures happened at home. From neurologic point of view, I was called into evaluate him for further management. HISTORY OF PRESENT ILLNESS: Mr. Evin Christopher is a 52-year-old right-handed [place] male, who was admitted consuming of three to four beers as per the patient at his relative's house. He had witnessed two to three seizures at home. He was brought into [facility] by EMS as per the requisition from his family members. No history of fall. No history of head trauma. No history of bowel or bladder incontinence at the scene. No history of bitten tongue. He admits he had a similar episode of seizures in 02/2017. He also stated that he has been having seizures in while he was in [employer]. At that time, he was not alcohol user. He had been worked up and he was placed on Keppra as per his statement (I doubt). He has been seeing his own neurologist in [place]. He admits he is taking the Keppra religiously. He is also complaining of abrupt onset of chest pain since yesterday, which is compressive in nature radiating to his left arm. PAST MEDICAL HISTORY: Seizure disorder. PERSONAL HISTORY: He denies smoking, however, alcohol consumption during family gathering. ALLERGIES: NO KNOWN ALLERGIES. REVIEW OF SYSTEMS: A 12-point system reviewed. From neuro, seizures. MEDICATIONS: Lorazepam on tapering dose, folic acid, multivitamins, Keppra, and thiamine supplements. PHYSICAL EXAMINATION: VITAL SIGNS: Blood pressure 135/96, mean arterial pressure of 109, respiratory rate 16 and temperature afebrile. NECK: Supple. No carotid bruit. HEART: Sounds regular. CHEST: Fair air entry. EXTREMITIES: No edema in the legs. NEUROLOGIC: Mental Status Examination: He is awake, alert and oriented to person, place and time. Speech is clear. Naming, repetition, fluency and comprehension all within normal. No sign of retrograde as well as anterograde amnesia at present. No confabulation. No hallucination. No sign of depression. Cranial Nerve Examination: Visual field intact. Pupils reactive to light. Extraocular movement normal. No nystagmus. No facial sensory deficit. No facial asymmetry. Hearing is normal. Tongue is midline. Good gag. Motor Examination: On outstretched hand with eyes closed, no tremor noted, no asterixis. Tone is normal. Deep tendon reflexes are absent. Plantars are downgoing. Sensory Examination: Significant bilateral distal symmetric sensorimotor neuropathy. Coordination: [id number] test is intact. Gait is deferred at this time because of his chest pain. WORKUP: CT of the head reported as no acute pathologies noted. EKG repeated as my request today this morning shows sinus tachycardia without any acute ST changes. LABORATORY DATA: Blood workup; WBC 2.8, hemoglobin 8.6, hematocrit 26.7 and platelets 109. Sodium 139, potassium 3.7, chloride 101, bicarbonate 24, BUN 10, creatinine 0.6, GFR more than 60, random glucose 124. AST 144, ALT 101, total protein 8.5. Urine 1+ proteinuria, 8 rbc's. Urine shows alcohol level 371 at the time of admission. CONCLUSION: Mr. Evin Christopher has been presenting with seizure secondary to his alcohol consumption. He is presenting with alcohol intoxicated. The patient also showed evidence of bilateral distal symmetric sensorimotor neuropathy. RECOMMENDATIONS: 1. Taper off Ativan. 2. If the chest pain persists, need a Cardiology consult. 3. Multivitamins to be continued. 4. Keppra should be continued as he has been taking. 5. Substance abuse rehabilitation, social service evaluation to be done prior to the discharge. 6. The patient should not be driving. 7. The patient should be scheduled to have a followup visit with his own neurologist for further management. From neurological point of view, he does not need any further workup. The patient can be followed by his own neurologist as an outpatient. Chiki Barrera MD MANAV
[2017-06-12] MEDS ORDERED: Pneumococcal 23-Valent Vaccine IM ONE (14:00)
[2017-06-12] MEDS ORDERED: Influenza Vaccine 60 mcg/0.5 mL SYR (4YR UP) IM ONE (14:00)
--- NOTE | 2017-06-14 18:39 | CARD ---
APPROVED REPORT EKG Measurement Heart [id number] <Conclusion> Sinus tachycardia Minimal voltage criteria for LVH, may be normal variant Borderline ECG
--- NOTE | 2017-06-16 15:07 | PQF GENQUE ---
This form is a permanent part of the medical record Based on the below clinical indicators, please clarify whether alcohol withdrawal was ruled in ruled out, or unable to clinically determine. Clarification of your documentation is requested to better reflect the severity of illness and intensity of treatment of your patient. Indicators present [] Specify: [Ativan taper for alcohol withdrawal-H&P and progress note for ] [] Specify: [] [] Specify: [] [] Specify: [] Location in the medical record that reflects the above clinical findings: [] Treatment Provided: [] CIWA protocol with ativan, seizure precautions, fall precautions PHYSICIAN'S RESPONSE Based on your medical judgment of the clinical indicators outlined above please clarify the following: [] Practitioner response - monitored the patient for seizures and worsening withdrawal symptoms while using CIWA protocol with ativan [] If unable to determine, please check the box, sign and date. Present On Admission (POA) Indicator: [] Present at the time of admission X [] Not present at the time of admission [] Clinically Undetermined In responding to this query, please exercise your independent professional judgment. The fact that a question is asked does not imply that any particular answer is desired or expected. Thank you for your clarification on this documentation. If you have any questions please call:[ ] * Thank you, [ ] handcrew foreman MANAV
== END 2017-06-11 13:37 | disposition home or self-care (01) | DRG 897 ==
LOC: C.ER 17:30 → C.9E 23:48 → C.6T 06-10 01:04
PROVIDERS: ADMIT Family Medicine; ATTEND Family Medicine
DX: F10.239 Alcohol dependence with withdrawal, unspecified (principal); Z99.81 Dependence on supplemental oxygen; G40.509 Epileptic seizures related to external causes, not intractable, without status epilepticus; I10 Essential (primary) hypertension; E11.9 Type 2 diabetes mellitus without complications; D64.9 Anemia, unspecified; G62.2 Polyneuropathy due to other toxic agents; J45.909 Unspecified asthma, uncomplicated; F17.210 Nicotine dependence, cigarettes, uncomplicated; G56.00 Carpal tunnel syndrome, unspecified upper limb; F10.229 Alcohol dependence with intoxication, unspecified; R07.9 Chest pain, unspecified; R00.0 Tachycardia, unspecified; Y90.8 Blood alcohol level of 240 mg/100 ml or more; Z86.19 Personal history of other infectious and parasitic diseases

== ENCOUNTER 2017-06-11 17:36 | Emergency (ER) | payer MEDICAID, OTHER ==
[2017-06-11 17:47] VITALS: RESP 16
[2017-06-11] MEDS ORDERED: Sodium Chloride 0.9% 1,000 ML IV ONE (18:09)
[2017-06-11 18:27] LABS: BASO % 0.3 % (0.0-2.0); EOS % 0.7 % (0.0-4.0); HEMATOCRIT 32.5 % (35.0-51.0); LYMPH # 1.9 K/uL (1.0-4.3); LYMPH % 35.6 % (20.0-40.0); MEAN CORPUSCULAR HGB CONC 32.5 g/dL (33.0-37.0); MEAN PLATELET VOLUME 9.2 fL (7.2-11.7); MONO # 0.5 K/uL (0.0-0.8); MONO % 9.2 % (0.0-10.0); NRBC % 0.2 % (0.0-2.0); RED CELL DISTRIBUTION WIDTH 20.2 % (11.5-14.5)
[2017-06-11 18:29] LABS: WHITE BLOOD COUNT 5.4 K/uL (4.8-10.8)
[2017-06-11 18:31] LABS: CHLORIDE 95 mmol/L (98-107)
[2017-06-11 18:32] LABS: POTASSIUM 4.8 mmol/L (3.6-5.2); SODIUM 134 mmol/L (132-148)
[2017-06-11 18:34] LABS: ALB/GLOB RATIO 0.8 (1.0-2.1); ALKALINE PHOSPHATASE 100 U/L (38-126); ALT/SGPT 109 U/L (21-72); AST/SGOT 164 U/L (17-59); BILIRUBIN,TOTAL 0.7 mg/dL (0.2-1.3); BLOOD UREA NITROGEN 19 mg/dL (9-20); CARBON DIOXIDE 25 mmol/L (22-30); GFR AFRICAN-AMERICAN > 60; TOTAL PROTEIN 9.7 g/dL (6.3-8.3)
[2017-06-11 18:35] LABS: ALCOHOL SERUM < 10 mg/dl (0-10); CALCIUM 9.6 mg/dl (8.6-10.4); GLUCOSE,RANDOM 97 mg/dL (75-110); MAGNESIUM 1.3 mg/dL (1.6-2.3)
[2017-06-11] MEDS ORDERED: Magnesium Sulfate 1 gm in D5W 1 GM/100 ML BAG IVPB STA (19:11)
--- NOTE | 2017-06-11 21:40 | C.PDOC ---
Time Seen by Provider: 06/11/17 17:48 Chief Complaint (Nursing): Seizure History Per: Patient, EMS Recent Seizure Activity Began: Just Before Arrival Number Of Seizures: One Length Of Seizures (Duration): Unknown Quality Of Seizure: Generalized (?) Post-ictal Period: Duration Unknown Severity: Moderate Additional History Per: Prior Records Past Medical History Reviewed: Historical Data, Nursing Documentation, Vital Signs Vital Signs: Last Vital Signs Temp 99 F 06/11/17 17:43 Pulse 120 H 06/11/17 17:43 Resp 16 06/11/17 17:43 BP 104/75 06/11/17 17:43 Pulse Ox 96 06/11/17 17:43 - Medical History PMH: Asthma, Depression, HTN, Seizures Surgical History: Appendectomy Family History: States: Unknown Family Hx - Social History Hx Tobacco Use: Yes Hx Alcohol Use: Yes Hx Substance Use: No - Immunization History Hx Tetanus Toxoid Vaccination: No Hx Influenza Vaccination: Yes Hx Pneumococcal Vaccination: Yes Review Of Systems Except As Marked, All Systems Reviewed And Found Negative. Constitutional: Negative for: Fever Cardiovascular: Negative for: Chest Pain Respiratory: Negative for: Shortness of Breath Gastrointestinal: Negative for: Vomiting, Abdominal Pain Musculoskeletal: Negative for: Neck Pain Skin: Negative for: Rash Neurological: Positive for: Seizures. Negative for: Weakness, Numbness Physical Exam - Physical Exam Appears: Non-toxic, No Acute Distress Skin: Normal Color, Warm, Dry, No Rash Head: Atraumatic, Normacephalic Eye(s): bilateral: PERRL, EOMI Neck: Normal ROM, No Midline Cervical Tenderness, No Step Off Deformity, Supple Cardiovascular: Rhythm Regular Respiratory: Normal Breath Sounds, No Accessory Muscle Use Gastrointestinal/Abdominal: Soft, No Tenderness Extremity: Normal ROM, No Deformity Neurological/Psych: Oriented x3, Normal Motor, Normal Sensation ED Course And Treatment - Laboratory Results Result Diagrams: 06/11/17 18:20 06/11/17 18:20 Interpretation Of Abnormal: Mild hypomagnesemia ECG: Interpreted By Me, Viewed By Me ECG Rhythm: Sinus Tachycardia, Nonspecific Changes Interpretation Of ECG: LVH Rate From EC O2 Sat by Pulse Oximetry: 96 Pulse Ox Interpretation: Normal Progress - Interventions Interventions:: Observation, Intravenous fluid - Medications Administered Oral: Other (Keppra) Intravenous: Other (Mg) - Data Reviewed Data Reviewed: Lab, Diagnostic imaging, EKG, Old records - Patient Status Patient status: Mostly improved - Continuity of Care Discussed patient case with:: Patient, ED Nurse - Patient Plan Patient Plan: Discharge, F/U with PCP, Continue present meds Disposition Counseled Patient/Family Regarding: Studies Performed, Diagnosis, Need For Followup - Disposition Disposition: HOME/ ROUTINE Disposition Time: 21:41 Condition: IMPROVED Additional Instructions: Take your medications as prescribed. Avoid alcohol. Follow up with your doctor within 2 days. Return to the ER if you develop another seizure, weakness, worsening of symptoms or if you have any other concerns. Instructions: Epilepsy (ED) Forms: [facility] [facility] [place] (Bulgarian) - Clinical Impression Clinical Impression: Epilepsy
[2017-06-11 21:54] VITALS: BP 110/75; PULSE 82; TEMP 98.9; O2SAT 97
--- NOTE | 2017-06-14 18:16 | CARD ---
APPROVED REPORT EKG Measurement Heart [id number] <Conclusion> Sinus tachycardia Voltage criteria for left ventricular hypertrophy Abnormal ECG
== END 2017-06-11 21:54 | disposition home or self-care (01) ==
LOC: C.ER 17:36
DX: G40.909 Epilepsy, unspecified, not intractable, without status epilepticus (principal)
CPT/HCPCS: 80053; 83735; 85025; 93005; 96361; 96365; 99285; G0480; J3475; J7040

== ENCOUNTER 2018-02-26 20:44 | Emergency (ER) | payer OTHER ==
--- NOTE | 2018-02-26 21:00 | C.PDOC ---
History Of Present Illness 52-year-old male, presents to the emergency department, brought in by ambulance with complaints of public intoxication. Patient has a Hx of alcohol abuse. He denies any physical complaints at this time. Chief Complaint (Nursing): Substance Abuse History Per: EMS History/Exam Limitations: intoxication Current Symptoms Are (Timing): Still Present Modifying Factor(s): Alcohol Past Medical History Reviewed: Historical Data, Nursing Documentation, Vital Signs Vital Signs: Last Vital Signs Temp 98.7 F 02/27/18 04:36 Pulse 96 H 02/27/18 04:36 Resp 16 02/27/18 04:36 BP 115/69 02/27/18 04:36 Pulse Ox 97 02/27/18 04:36 - Medical History PMH: Asthma, Depression, HTN, Seizures Surgical History: Appendectomy Family History: States: No Known Family Hx - Social History Hx Tobacco Use: Yes Hx Alcohol Use: Yes Hx Substance Use: No - Immunization History Hx Tetanus Toxoid Vaccination: No Hx Influenza Vaccination: Yes Hx Pneumococcal Vaccination: Yes Review Of Systems Constitutional: Negative for: Fever Cardiovascular: Negative for: Chest Pain Respiratory: Negative for: Shortness of Breath Gastrointestinal: Negative for: Vomiting Musculoskeletal: Negative for: Back Pain Neurological: Negative for: Weakness, Numbness, Headache Physical Exam - Physical Exam Appears: Non-toxic, No Acute Distress, Other (Intoxicated. EtOH on breath) Skin: Normal Color, Warm, Dry, No Rash Head: Atraumatic, Normacephalic Eye(s): bilateral: Normal Inspection Nose: Normal Neck: Normal ROM Chest: Symmetrical Cardiovascular: Rhythm Regular, No Murmur Respiratory: Normal Breath Sounds, No Accessory Muscle Use Extremity: Normal ROM, No Deformity, No Swelling ED Course And Treatment - Laboratory Results Result Diagrams: 02/26/18 21:16 02/26/18 21:16 Disposition Counseled Patient/Family Regarding: Diagnosis - Disposition Referrals: [facility] [Outside] Disposition: HOME/ ROUTINE Disposition Time: 05:04 Condition: STABLE Instructions: Alcohol Abuse and Alcoholism (DC) Forms: [facility] (Urdu) - POA Present On Arrival: None - Clinical Impression Clinical Impression: Alcohol intoxication - Scribe Statement The provider has reviewed the documentation as recorded by the Scribe (Jose Luis Mckinnon) All medical record entries made by the Scribe were at my direction and personally dictated by me. I have reviewed the chart and agree that the record accurately reflects my personal performance of the history, physical exam, medical decision making, and the department course for this patient. I have also personally directed, reviewed, and agree with the discharge instructions and disposition.
[2018-02-26 21:20] LABS: BASO % 0.4 % (0.0-2.0); EOS # 0.2 K/uL (0.0-0.7); EOS % 2.6 % (0.0-4.0); HEMOGLOBIN 10.6 g/dL (12.0-18.0); LYMPH # 6.2 K/uL (1.0-4.3); LYMPH % 66.6 % (20.0-40.0); MEAN CELL VOLUME 87.6 fL (80.0-94.0); MEAN CORPUSCULAR HEMOGLOBIN 28.5 pg (27.0-31.0); MEAN CORPUSCULAR HGB CONC 32.5 g/dL (33.0-37.0); MEAN PLATELET VOLUME 7.9 fL (7.2-11.7); MONO % 10.5 % (0.0-10.0); NEUT # 1.9 K/uL (1.8-7.0); NEUT % 19.9 % (50.0-75.0); RBC 3.73 Mil/uL (4.40-5.90); RED CELL DISTRIBUTION WIDTH 17.2 % (11.5-14.5); WHITE BLOOD COUNT 9.3 K/uL (4.8-10.8)
[2018-02-26 21:34] LABS: ALB/GLOB RATIO 0.9 (1.0-2.1); ALBUMIN 4.3 g/dL (3.5-5.0); CALCIUM 9.4 mg/dl (8.6-10.4)
[2018-02-26 23:05] VITALS: RESP 16; O2SAT 97
[2018-02-27] MEDS ORDERED: Multivitamin (MVI) 10 ML, Thiamine 100 MG, Folic Acid 1 MG in Sodium Chloride 0.9% 1,00... IV ONE (01:59)
[2018-02-27 04:36] VITALS: BP 115/69; PULSE 96; TEMP 98.7
== END 2018-02-27 05:11 | disposition home or self-care (01) ==
LOC: C.ER 20:44
DX: F10.129 Alcohol abuse with intoxication, unspecified (principal); Y90.8 Blood alcohol level of 240 mg/100 ml or more